=== PATIENT | male | born 1970 | race Caucasian/White ===

== ENCOUNTER 2019-04-10 05:09 | Emergency (ER) | payer OTHER ==
[~2019-04-10] VITALS: Ht 182.9 cm; Wt 88.5 kg
[2019-04-10 06:43] LABS: URINE BILIRUBIN NEGATIVE (Negative); URINE BLOOD 3+ (Negative); URINE CLARITY CLEAR; URINE COLOR YELLOW; URINE GLUCOSE-RANDOM TRACE (Negative); URINE KETONES TRACE (Negative); URINE LEUKOCYTES-REFLEX TRACE (Negative); URINE PROTEIN 3+ (Negative); URINE SPECIFIC GRAVITY 1.025 (1.005-1.030)
[2019-04-10 06:45] LABS: URINE NITRITE-REFLEX POSITIVE (Negative)
[2019-04-10 06:55] LABS: SQUAMOUS 0-3 Few /LPF (0-3); URINE RBC >20 Many /HPF (0-2); URINE WBC-REFLEX 6-15 Few /HPF (0-5)
[2019-04-10 06:56] LABS: CASTS None Seen /LPF (None Seen); CRYSTALS None Seen /LPF (None Seen); MUCUS 4-6 Moderate strn/LPF (None Seen)
[2019-04-10] MEDS ORDERED: CIPROFLOXACIN500 M1 PO (06:59)
[2019-04-10] MEDS ORDERED: HYDROCODON-ACE1 EAC8 PO (06:59)
[2019-04-10 07:09] VITALS: BP 168/85
[2019-04-10] MEDS ORDERED: BACTRIM DS TAB1 EACH PO (07:19)
== END 2019-04-10 07:13 | disposition home or self-care (01) ==
LOC: M.ERS 05:09
PROVIDERS: Emergency Medicine
DX: N39.0 Urinary tract infection, site not specified (principal); R33.9 Retention of urine, unspecified